=== PATIENT | female | born 1970 | race Caucasian/White ===

== ENCOUNTER 2019-01-02 11:08 | Emergency (ER) | payer OTHER ==
[~2019-01-02] VITALS: Wt 81.0 kg
[2019-01-02 11:14] VITALS: BP 128/58; PULSE 70; RESP 18
[2019-01-02] MEDS ORDERED: ONDANSETRON (ODT) 4 MG TAB ODT STA (12:12)
[2019-01-02] MEDS ORDERED: ACETAMINOPHEN 325 MG TAB PO ONE (12:30)
[2019-01-02] MEDS ORDERED: MECLIZINE 12.5 MG TAB PO ONE (12:30)
[2019-01-02] MEDS ORDERED: MECL-77 PO (13:37)
[2019-01-02] MEDS ORDERED: ONDA8TAB14 PO (13:37)
--- NOTE | 2019-01-02 13:42 | ERD ---
ER Documentation Chief Complaint Chief Complaint NON TRAUMATIC POLO AND DIZZINESS ONLY WHEN MOVING HEAD, NO VISION PROB HPI 48-year-old female presents with reproducible recurrent spinning type dizziness for last 2 days. Is worse when she lies down and moves her head. She denies any recent URIs, ear pain. She has mild posterior headache. She denies any cough, shortness of breath, deficits, additional symptoms ROS All systems reviewed and are negative except as per history of present illness. Medications Home Meds Active Scripts Meclizine Hcl* (Meclizine Hcl*) 25 Mg Tablet, 25 MG PO Q8H PRN for DIZZINESS, #15 TAB Prov:NEPTALI ARAGON MD 01/02/19 Ondansetron (Ondansetron Odt) 8 Mg Tab.rapdis, 8 MG PO Q6H PRN for NAUSEA AND/OR VOMITING, #8 TAB Prov:NEPTALI ARAGON MD 01/02/19 Allergies Allergies: Coded Allergies: No Known Allergy (Unverified , 01/02/19) PMhx/Soc Medical and Surgical Hx: pt denies Medical Hx, pt denies Surgical Hx Hx Alcohol Use: No Hx Substance Use: No Hx Tobacco Use: No Smoking Status: Never smoker FmHx Family History: No diabetes, No coronary disease, No other Physical Exam Vitals Vital Signs Date Temp Pulse Resp B/P (MAP) Pulse Ox O2 O2 Flow FiO2 Time Delivery Rate 01/02/19 98.9 70 18 128/58 99 11:14 (81) Physical Exam Const: No acute distress Head: Atraumatic Eyes: Normal Conjunctiva ENT: Normal External Ears, Nose and Mouth. TMs normal. Eyes Thee and extraocular movements intact. Neck: Full range of motion. No meningismus. Resp: Clear to auscultation bilaterally Cardio: Regular rate and rhythm, no murmurs Abd: Soft, non tender, non distended. Normal bowel sounds Skin: No petechiae or rashes Back: No midline or flank tenderness Ext: No cyanosis, or edema Neur: Awake and alert. Cranial nerves II through XII grossly intact. No cerebellar signs. No pronator drift. Normal gait. Negative cover uncover test. Reproducible vertigo bilaterally. Psych: Normal Mood and Affect Results 24 hrs Laboratory Tests Test 01/02/19 12:38 01/02/19 12:40 Bedside Urine pH (LAB) 5.5 Bedside Urine Protein (LAB) Negative Bedside Urine Glucose (UA) Negative Bedside Urine Ketones (LAB) Trace Bedside Urine Blood Trace-intact Bedside Urine Nitrite (LAB) Negative Bedside Urine Leukocyte Esterase (L Trace POC Beta HCG, Qualitative NEGATIVE Current Medications Medications Dose Sig/David Start Time Status Last (Trade) Ordered Route PRN Stop Time Admin Dose Reason Admin 650 mg ONCE ONCE 01/02/19 DC 01/02/19 Acetaminophen PO 12:30 12:34 (Tylenol 01/02/19 12:31 Tab) Ondansetron 8 mg ONCE STAT 01/02/19 DC 01/02/19 HCl (Zofran ODT 12:12 12:34 Odt) 01/02/19 12:14 Meclizine 25 mg ONCE ONCE 01/02/19 DC 01/02/19 HCl PO 12:30 12:34 (Antivert) 01/02/19 12:31 Procedures/MDM Patient presents with headache and bilateral reproducible vertigo. Patient uncertain cause and patient concern CT brain performed shows empty sella otherw ise no acute findings of bleeding, mass-effect. Patient was given Zofran and Antivert. Patient has trace leukocytes and hemoglobin although patient does not have urinary complaints will defer treatment of UTI. HCG negative. Patient likely has labyrinthitis or peripheral vertigo. Currently there are no signs of central vertigo, neurologic deficit, signs of meningitis, additional concerning signs or symptoms. She will be treated symptomatically with primary care follow-up and return precautions. The patient was stable with no new complaints during the ER course. Clinically, there is no current evidence to suggest meningitis, sepsis, acute abdomen, pneumonia, stroke, acute coronary syndrome, pulmonary embolism, aortic dissection or any other emergent condition appearing to require further evaluation or hospitalization. Patient counseled regarding my diagnostic impression and care plan. Prior to discharge all questions answered. Pt agrees with treatment plan and understands strict return precautions. Pt is instructed to follow up with primary care provider within 24- 48 hours. Precautionary instructions provided including instructions to return to the ER if not improving or for any worsening or changing symptoms or concerns. Departure Diagnosis: Primary Impression: Vertigo Additional Impression: Dizziness Condition: Stable Patient Instructions: Dizziness, Unk Cause, Vertigo, Unspecified [facility] Usted se polo hecho un examen mdico de control que le indica que no est en chas condicin que requiera tratamiento urgente en el Departamento de Emergencia. Un estudio ms profundo y el tratamiento de yang condicin pueden esperar sin ningn riesgo hasta que usted sea atendida/o en el consultorio de yang mdico o chas clnica. Es responsabilidad suya arreglar chas lacey para el seguimiento del marilee. MANEJO DE CONDICIONES NO URGENTES EN EL FUTURO 1) Si usted tiene un mdico de atencin primaria: Usted debera llamar a yang mdico de atencin primaria antes de venir al departamento de emergencia. Despus de las horas de consultorio, yang doctor o yang asociado/a est disponible por telfono. El mdico o enfermero de shonda en el servicio telefnico puede asesorarle por ben medio para atender el problema, o marilee contrario se puede programar chas lacey. 2) Si usted no tiene un mdico de atencin primaria: Llame al mdico o clnica de referencia que aparece abajo kayla las horas de consultorio para hacer chas lacey para que le vean. CLINICAS: [facility] [phone] [facility] [phone] [facility] [phone] [facility]. [place] [phone] [facility]. [place] [phone] [facility] [phone] [address] Additional Instructions: no hay cosas peligrosa. Cheque otro vez con yang doctor primario en el proximo thompson or regresa para mas o nueva simptomas. NEPTALI ARAGON MD Jan 02, 2019 13:42
== END 2019-01-02 13:47 | disposition home or self-care (01) ==
LOC: FTE 11:08
DX: R42 Dizziness and giddiness (principal)
CPT/HCPCS: 70450; 81003; 81025; Z7502; Z7610